=== PATIENT | female | born 1955 | race Caucasian/White ===

== ENCOUNTER → 2018-06-24 | Outpatient (CLI) | payer OTHER | LOC: LAB FS 06:39 | PROVIDERS: ATTEND Family Medicine | DX: Z53.9 Procedure and treatment not carried out, unspecified reason (principal) ==

== ENCOUNTER 2021-04-06 08:26 | Emergency (ER) | payer OTHER ==
[~2021-04-06] VITALS: Ht 157.5 cm; Wt 90.7 kg
--- NOTE | 2021-04-06 09:04 | ED General ---
General Chief Complaint: Glucose Problems Stated Complaint: HYPOGLYCEMIA Nursing Triage Note: PT TO ROOM FS05 [facility]IA [facility] WITH C/O HYPOGLYCEMIA. PT WAS FOUND [place] IN HER VEHICLE. PT REPORTS SHE WAS DRIVING TO WORK IN [facility] FOR REHAB MEDICINE AND IS UNSURE HOW SHE MADE IT NORTH OF [facility]. PT REPORTS TAKING HER INSULIN LIKE SHE USUALLY DOES AND HAD HER BREAKFAST SANDWICH WITH HER. PT REPORTS THAT HER INSULIN PEN HAS NOT BEEN WORKING CORRECTLY. PT BLOOD GLUCOSE 177 UPON ARRIVAL. EMS REPORTS GIVING PT AMP OF D50 ENROUTE. PT RETURN TO HER NORMAL HANDLE BENDER. Source of Information: Patient Exam Limitations: No Limitations History of Present Illness Date Seen by Provider: Apr 06, 2021 Time Seen by Provider: 08:30 Initial Comments Patient is 65-year-old female with history of insulin-dependent diabetes who presents with acute hypoglycemic event with altered mental status after accidentally rebolusing her insulin this morning. Patient has a NovoLog pen and is unsure if it injected, and therefore repeated the injection. Patient then did not eat breakfast she was found to be confused and EMS was contacted. She was found with a blood sugar of 40 per EMS. Patient given amp of D50 and oral glucose. Blood sugar 170 with improved mental status. No other symptoms or complaints. Timing/Duration: 1/2 Hour Modifying Factors: improves with Other Associated Systoms: Other Allergies and Home Medications Allergies Coded Allergies: Prochlorperazine (Verified Allergy, Intermediate, 05/04/05) Patient Home Medication List Home Medication List Reviewed: Yes Review of Systems Review of Systems Constitutional: see HPI EENTM: see HPI Respiratory: see HPI Cardiovascular: see HPI Gastrointestinal: see HPI Genitourinary: see HPI Musculoskeletal: see HPI Skin: see HPI Psychiatric/Neurological: See HPI Hematologic/Lymphatic: See HPI Immunological/Allergic: see HPI All Other Systems Reviewed Negative Unless Noted: Yes Past Cewvpks-Icsmhg-Jfgcwl Hx Patient Social History Tobacco Use?: Yes Smoking Status: Never a Smoker Smokeless Tobacco Frequency: Never a User Use of E-Cig and/or Vaping dev: No Use of E-Cig and/or Vaping Hero: Never a User Substance use?: No Alcohol Use?: No Pt feels they are or have been: No Immunizations Up To Date First/Initial COVID19 Vaccinat: UNKNOWN DATE Second COVID19 Vaccination Julien: UNKNOWN DATE Physical Exam Vital Signs Vital Signs - First Documented 04/06/21 08:27 Temp 36.6 Pulse 76 Resp 17 B/P (MAP) 173/86 (115) O2 Delivery Room Air Capillary Refill : Less Than 3 Seconds Height, Weight, BMI Height: '" Weight: lbs. oz. 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 Norm as Tested Skin: Normal Color Focused Exam Sepsis Stage: Ruled Out Progress/Results/Core Measures Suspected Sepsis SIRS Temperature: Pulse: 76 Respiratory Rate: 17 Blood Pressure 173 /86 Mean: 115 Results/Orders Lab Results Laboratory Tests Test 04/06/21 08:33 Range/Units Glucometer 177 H 70-110 MG/DL Vital Signs/I&O 04/06/21 08:27 Temp 36.6 Pulse 76 Resp 17 B/P (MAP) 173/86 (115) O2 Delivery Room Air Capillary Refill : Less Than 3 Seconds Blood Pressure Mean: 115 Point of Care Testing Finger Stick Blood Glucose: 177 Departure Communication (Admissions) Patient blood sugar recheck remains greater than 100. Patient given complex carbs in the ED. Recommendations are continue monitoring upon discharge home Impression Primary Impression: Hypoglycemia Disposition: 01 HOME, SELF-CARE Condition: Stable Departure-Patient Inst. Decision time for Depature: 09:04 Referrals: DEEPA BRADLEY MD (PCP/Family) Primary Care Physician Patient Instructions: Low Blood Sugar, Adult (DC) Add. Discharge Instructions: Please do not repeat insulin pen injection if you have unsure initial it is working properly. Use a new insulin pen and does discuss continued issues with either the pharmacist or your PCP. Continue to monitor home blood sugars for the rest the day. Return to the ED if new or worsening symptoms, All discharge instructions reviewed with patient and/or family. Voiced understanding. ROCCO PERRY DO Apr 06, 2021 09:04
[2021-04-06 09:17] VITALS: BP 167/77
== END 2021-04-06 09:17 | disposition home or self-care (01) ==
LOC: ER FS 08:26 → EDUNIT# 08:26 → ER FS 09:17
DX: E11.649 Type 2 diabetes mellitus with hypoglycemia without coma (principal); Z72.0 Tobacco use
CPT/HCPCS: 82947

== ENCOUNTER → 2021-05-23 | Outpatient (CLI) | payer OTHER ==
--- NOTE | 2021-05-23 13:01 | Diagnostic Imaging Report ---
INDICATION: Rib pain status post fall. EXAMINATION: Left rib series with a chest on 05/23/2021. FINDINGS: The heart is prominent. The pulmonary vasculature is unremarkable. The lungs and pleural spaces are clear with no pneumothorax appreciated. There are clips in the right axilla. There is a large hiatal hernia. No displaced rib fracture is appreciated. IMPRESSION: 1. Chronic changes as described above including a large hiatal hernia with no acute process appreciated. 2. No rib fracture is appreciated. Dictated by: Dictated on workstation # [id number]
== END ==
LOC: RAD FS 11:42
PROVIDERS: ATTEND Family Medicine
DX: R07.81 Pleurodynia (principal); W19.XXXA Unspecified fall, initial encounter; K44.9 Diaphragmatic hernia without obstruction or gangrene; Z98.890 Other specified postprocedural states
CPT/HCPCS: 71101

== ENCOUNTER 2022-07-27 09:28 | Emergency (ER) | payer OTHER ==
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
[2022-07-27 10:04] LABS: PROTHROMBIN TIME PATIENT 13.4 SEC (12.2-14.7)
[2022-07-27] MEDS ORDERED: fentaNYL INJ 100 MCG/2 ML AMP IVP STA (10:05)
[2022-07-27] MEDS ORDERED: NS IV 1000 ML 1,000 ML IV STA (10:07)
[2022-07-27] MEDS ORDERED: DEXTROSE 50% 50 ML (IMS) SYR IV STA (10:07)
[2022-07-27 10:12] LABS: BASOPHILS # (AUTO) 0.1 10^3/uL (0.0-0.1); BASOPHILS % (AUTO) 1 % (0-10); EOSINOPHILS # (AUTO) 0.3 10^3/uL (0.0-0.3); EOSINOPHILS % (AUTO) 2 % (0-10); HEMATOCRIT 44 % (35-52); HEMOGLOBIN 14.4 g/dL (11.5-16.0); LYMPHOCYTES # (AUTO) 2.1 10^3/uL (1.0-4.0); LYMPHOCYTES % (AUTO) 17 % (12-44); MEAN CORPUSCULAR HEMOGLOBIN 29 pg (25-34); MEAN CORPUSCULAR HGB CONC 33 g/dL (32-36); MEAN CORPUSCULAR VOLUME 89 fL (80-99); MONOCYTES # (AUTO) 0.8 10^3/uL (0.0-1.0); MONOCYTES % (AUTO) 6 % (0-12); NEUTROPHILS # (AUTO) 9.3 10^3/uL (1.8-7.8); NEUTROPHILS % (AUTO) 73 % (42-75); PLATELET COUNT 216 10^3/uL (130-400); WHITE BLOOD COUNT 12.8 10^3/uL (4.3-11.0)
[2022-07-27 10:30] LABS: BILIRUBIN,TOTAL 0.6 MG/DL (0.1-1.0); CALCIUM 9.1 MG/DL (8.5-10.1); CREATININE SERUM 0.75 MG/DL (0.60-1.30); POTASSIUM 3.6 MMOL/L (3.6-5.0)
[2022-07-27 10:31] LABS: ALBUMIN 3.9 GM/DL (3.2-4.5)
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
[2022-07-27] MEDS ORDERED: CATHETER FLUSH 10 ML SYR IV PRN (10:45)
[2022-07-27] MEDS ORDERED: NS 100 ML (IVPB) BAG IV ONE (10:45)
[2022-07-27] MEDS ORDERED: IOHEXOL 350 MG/ML 100 ML (OMNIPAQUE 350) VIAL IV ONE (10:45)
[2022-07-27] MEDS ORDERED: HOLD METFORMIN - RECEIVED CONTRAST 20 ML VIAL IV SCH (10:45)
[2022-07-27] MEDS ORDERED: D5 LR IV SOLUTION 1,000 ML IV STA (11:00)
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
[2022-07-27 11:12] LABS: BILIRUBIN,URINE NEGATIVE (NEGATIVE); CLARITY,URINE CLEAR; COLOR,URINE YELLOW; GLUCOSE, URINE (UA) 1+ (NEGATIVE); KETONES,URINE TRACE (NEGATIVE); LEUKOCYTE ESTERASE ,URINE NEGATIVE (NEGATIVE); NITRITE,URINE NEGATIVE (NEGATIVE); PROTEIN,URINE NEGATIVE (NEGATIVE)
[2022-07-27 11:18] LABS: BACTERIA,URINE NEGATIVE /HPF; RBC,URINE 0-2 /HPF; SQUAMOUS EPITHELIAL CELL,UR 0-2 /HPF; WBC,URINE RARE /HPF
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
[2022-07-27] MEDS ORDERED: fentaNYL INJ 100 MCG/2 ML AMP IVP ONE (11:30)
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
[2022-07-27 11:49] VITALS: BP 124/76
== END 2022-07-27 11:46 | disposition short-term general hospital (02) ==
LOC: EDUNIT# 09:28 → ER FS 09:29
DX: S06.6X1A Traumatic subarachnoid hemorrhage with loss of consciousness of 30 minutes or less, initial encounter (principal); S22.42XA Multiple fractures of ribs, left side, initial encounter for closed fracture; S12.100A Unspecified displaced fracture of second cervical vertebra, initial encounter for closed fracture; S62.316A Displaced fracture of base of fifth metacarpal bone, right hand, initial encounter for closed fracture; S52.501A Unspecified fracture of the lower end of right radius, initial encounter for closed fracture; S52.601A Unspecified fracture of lower end of right ulna, initial encounter for closed fracture; E11.649 Type 2 diabetes mellitus with hypoglycemia without coma; E66.9 Obesity, unspecified; Z68.36 Body mass index [BMI] 36.0-36.9, adult; V59.9XXA Occupant (driver) (passenger) of pick-up truck or van injured in unspecified traffic accident, initial encounter; Y92.410 Unspecified street and highway as the place of occurrence of the external cause
CPT/HCPCS: 36415; 51702; 70450; 70486; 71045; 71260; 72125; 73110; 73590; 74177; 80053; 81000; 82947; 85025; 85610; 85730; 93005; 93041; 99284; G0480; 80320; Q9967